=== PATIENT | male | born 1995 | race Caucasian/White ===

== ENCOUNTER 2024-02-07 11:27 | Outpatient (CLI) | payer OTHER, SELFPAY | END 2024-02-07 11:28 | disposition home or self-care (01) | LOC: FRMREF 11:27 | PROVIDERS: Visit Provider Physician Assistant Medical | DX: R53.83 Other fatigue (principal); R63.5 Abnormal weight gain; Z13.220 Encounter for screening for lipoid disorders | CPT/HCPCS: 80053; 80061; 82306; 82607; 82728; 84403; 84443 ==